=== PATIENT | male | born 1960 | race Caucasian/White ===

== ENCOUNTER 2016-09-27 10:56 | Emergency (ER) | payer MEDICAID ==
[~2016-09-27] VITALS: Ht 167.6 cm; Wt 78.0 kg
[2016-09-27 11:03] VITALS: BP 132/59
== END 2016-09-27 11:21 | disposition home or self-care (01) ==
LOC: ER 10:58
DX: R21 Rash and other nonspecific skin eruption (principal)
CPT/HCPCS: 99281; A4606; Z7610; Z7502

== ENCOUNTER 2016-12-14 20:48 | Emergency (ER) | payer MEDICAID ==
[~2016-12-14] VITALS: Ht 172.7 cm; Wt 76.7 kg
--- NOTE | 2016-12-14 21:00 | NUR ---
URINE SAMPLE COLLECTED AND SENT TO LAB.
--- NOTE | 2016-12-14 21:20 | NUR ---
TO BED 2 AMBULATORY SENT BY PMD FOR ABNORMAL LABS. ELEVATED LYMPHOCYTES 580 PER PT REPORT. PT ALSO REPORTS DIARRHEA X1 MONTH AND NIGHT SWEATS. PT AAOX4 NO ACUTE DISTRESS NOTED, RESP EVEN AND UNLABORED. PLACE PT ON CARDIAC MONITORING, CONTINUOUS POX. PENDING ER MD CARREON.
--- NOTE | 2016-12-14 21:30 | NUR ---
STARTED SL 18G TO R FOREARM, BLOOD DRAWN AND SENT TO LAB.
[2016-12-14 21:45] LABS: BASOPHILS # (AUTO) 0.1 /CMM (0.0-0.2); BASOPHILS % (AUTO) 1.2 % (0.0-2.0); EOSINOPHILS # (AUTO) 0.3 /CMM (0.0-0.7); EOSINOPHILS % (AUTO) 4.6 % (0.0-6.0); HEMATOCRIT 49 % (39-51); HEMOGLOBIN 16.5 g/dL (13.5-17.5); LYMPHOCYTES # (AUTO) 1.3 /CMM (0.8-4.8); LYMPHOCYTES % (AUTO) 19.4 % (20.0-44.0); MEAN CORPUSCULAR HEMOGLOBIN 30 PG (26.0-33.0); MEAN CORPUSCULAR HGB CONC 34 g/dl (31.0-36.0); MEAN CORPUSCULAR VOLUME 90 fL (80-96); MONOCYTES # (AUTO) 0.7 /CMM (0.1-1.30); MONOCYTES % (AUTO) 10.5 % (2.0-12.0); NEUTROPHILS # (AUTO) 4.3 /CMM (1.8-8.9); NEUTROPHILS % (AUTO) 64.3 % (43.0-81.0); PLATELET COUNT (AUTO) 221 /CMM (150-450); RDW COEFFICIENT OF VARIATION 12.1 (11.5-15.0); RED BLOOD CELL COUNT(AUTO) 5.44 MIL/uL (4.5-6.0); WHITE BLOOD COUNT (AUTO) 6.7 K/uL (4.3-11.0)
[2016-12-14 22:00] LABS: INR 1.02 (0.87-1.13); PROTHROMBIN TIME 10.6 SECS (9.5-12.7)
[2016-12-14 22:05] LABS: ALANINE AMINOTRANSFERASE 23 U/L (12-78); ALBUMIN 4.6 g/dL (3.4-5.0); ASPARTATE AMINOTRANSFERASE 21 U/L (15-37); BILIRUBIN,DIRECT 0.1 mg/dL (0.0-0.2); BILIRUBIN,TOTAL 0.4 mg/dL (0.2-1.0); CALCIUM, SERUM 10.6 mg/dL (8.5-10.1); CARBON DIOXIDE 25 mmol/L (21-32); CHLORIDE 104 mmol/L (98-107); CREATININE 0.9 mg/dL (0.6-1.3); GFR 87 mL/min (>60); GLUCOSE 96 mg/dL (74-106); POTASSIUM 4.1 mmol/L (3.5-5.1); SODIUM SERUM 137 mmol/L (136-145); TOTAL PROTEIN, SERUM 7.6 g/dL (6.4-8.2); UREA NITROGEN, BLOOD 14 mg/dL (7-18)
[2016-12-14 22:07] LABS: TROPONIN I < 0.017 ng/mL (0.00-0.056)
[2016-12-14 22:14] LABS: LACTIC ACID 0.8 mmol/L (0.4-2.0)
[2016-12-14 22:29] LABS: ALKALINE PHOSPHATASE 107 U/L (46-116)
--- NOTE | 2016-12-14 22:53 | NUR ---
IV removed. Catheter intact and site benign. Pressure and 4x4 applied to site. No bleeding noted. Patient discharged to home in stable condition. Written and verbal after care instructions given. Patient verbalizes understanding of instruction. ambulatory with a steady gait noted. pt aaox4 no acute distress noted, resp even and unlabored. pt remains pain free at this time.
[2016-12-14 22:55] VITALS: BP 127/63
== END 2016-12-14 22:55 | disposition home or self-care (01) ==
LOC: ER 20:57
DX: Z00.8 Encounter for other general examination (principal); R79.1 Abnormal coagulation profile; I10 Essential (primary) hypertension
CPT/HCPCS: 36415; 71010; 80048; 80076; 83605; 84484; 85025; 85730; 87040 ×2; 93005; 99285; A4606; Z7610

== ENCOUNTER 2016-12-17 04:45 | Emergency (ER) | payer MEDICAID ==
[~2016-12-17] VITALS: Ht 172.7 cm; Wt 77.1 kg
[2016-12-17 04:51] VITALS: BP 136/93
== END 2016-12-17 05:21 | disposition home or self-care (01) ==
LOC: ER 04:45
DX: R19.7 Diarrhea, unspecified (principal); I10 Essential (primary) hypertension; E78.00 Pure hypercholesterolemia, unspecified
CPT/HCPCS: 99281; A4606; Z7610; Z7502

== ENCOUNTER 2019-01-18 17:08 | Emergency (ER) | payer MEDICAID ==
[~2019-01-18] VITALS: Ht 172.7 cm; Wt 76.7 kg
[2019-01-18 17:10] VITALS: BP 144/80
--- NOTE | 2019-01-18 19:08 | NUR ---
Patient discharged to home in stable condition. Written and verbal after care instructions given. Patient verbalizes understanding of instruction.
== END 2019-01-18 19:08 | disposition home or self-care (01) ==
LOC: ER 17:13
DX: H61.23 Impacted cerumen, bilateral (principal); I10 Essential (primary) hypertension; E78.00 Pure hypercholesterolemia, unspecified

== ENCOUNTER 2020-08-08 03:23 | Emergency (ER) | payer MEDICAID ==
[~2020-08-08] VITALS: Ht 172.7 cm; Wt 72.6 kg
--- NOTE | 2020-08-08 03:25 | NUR ---
PT CAME TO THE ER C/O L TESTICULAR SWELLING AND PAIN S/P INGUINAL HERNIA REPAIR LAST 07/25/20. PT AAOX4,VSS, RESPIRATIONS EVEN AND UNLABORED ON RA W/ NAD NOTED. PT CONNECTED TO THE MONITOR AND POX
--- NOTE | 2020-08-08 03:45 | NUR ---
BLOOD COLLECTED AND SENT TO LAB
[2020-08-08 03:52] LABS: EOSINOPHILS % (AUTO) 4.1 % (0.0-6.0); HEMATOCRIT 43 % (39-51); HEMOGLOBIN 14.6 g/dL (13.5-17.5); LYMPHOCYTES # (AUTO) 0.5 /CMM (0.8-4.8); LYMPHOCYTES % (AUTO) 9.7 % (20.0-44.0); MEAN CORPUSCULAR HGB CONC 34 g/dl (31.0-36.0); MEAN CORPUSCULAR VOLUME 90 fL (80-96); MONOCYTES # (AUTO) 0.5 /CMM (0.1-1.30); MONOCYTES % (AUTO) 9.7 % (2.0-12.0); NEUTROPHILS # (AUTO) 4.2 /CMM (1.8-8.9); NEUTROPHILS % (AUTO) 76.5 % (43.0-81.0); PLATELET COUNT (AUTO) 192 /CMM (150-450); RED BLOOD CELL COUNT(AUTO) 4.77 MIL/uL (4.5-6.0); WHITE BLOOD COUNT (AUTO) 5.4 K/uL (4.3-11.0)
[2020-08-08 03:55] LABS: BILIRUBIN,URINE NEGATIVE (NEGATIVE); BLOOD, URINE NEGATIVE Ery/uL (NEGATIVE); COLOR,URINE YELLOW (YELLOW); LEUKOCYTE ESTERASE ,URINE NEGATIVE (NEGATIVE); NITRITE, URINE NEGATIVE (NEGATIVE); PROTEIN,URINE NEGATIVE (NEGATIVE); UGLUCOSE NEGATIVE (NEGATIVE); UROBILINOGEN,URINE 0.2 EU/dL (0.2)
[2020-08-08] MEDS ORDERED: IOHEXOL-300 100 ML VIAL IV ONE (03:57)
[2020-08-08] MEDS ORDERED: IV NS 0.9% 250 ML IV ONE (03:57)
[2020-08-08 03:58] LABS: CREATININE 0.9 mg/dL (0.6-1.3); POTASSIUM 4.2 mmol/L (3.5-5.1)
--- NOTE | 2020-08-08 04:25 | NUR ---
PT TAKEN TO CT
--- NOTE | 2020-08-08 04:35 | NUR ---
PT BACK FROM CT
--- NOTE | 2020-08-08 06:36 | NUR ---
Patient discharged to home in stable condition. Written and verbal after care instructions given. Patient verbalizes understanding of instruction.IV removed. Catheter intact and site benign. Pressure and 4x4 applied to site. No bleeding noted.
[2020-08-08 06:37] VITALS: BP 143/76
== END 2020-08-08 06:37 | disposition home or self-care (01) ==
LOC: ER 03:25
DX: K91.89 Other postprocedural complications and disorders of digestive system (principal); R50.9 Fever, unspecified; N50.89 Other specified disorders of the male genital organs; Z71.1 Person with feared health complaint in whom no diagnosis is made; I10 Essential (primary) hypertension; E78.00 Pure hypercholesterolemia, unspecified; Z98.890 Other specified postprocedural states
CPT/HCPCS: 36415; 71045; 74177; 80048; 81001; 85025; 99285; J7050; Q9967

== ENCOUNTER 2021-04-03 12:07 | Emergency (ER) | payer MEDICAID ==
[~2021-04-03] VITALS: Ht 172.7 cm; Wt 73.5 kg
[2021-04-03 12:17] VITALS: BP 104/57
[2021-04-03] MEDS ORDERED: GELATIN SPONGE,ABSORBABLE 1 SPONGE SPONGE TP ONE (12:33)
[2021-04-03] MEDS ORDERED: TDAP [DIPH/PERTUSSIS/TET] 0.5 ML VIAL IM ONE (13:11)
[2021-04-03] MEDS: TDAP [DIPH/PERTUSSIS/TET] 0.5 ML VIAL IM ONE (13:18)
--- NOTE | 2021-04-03 13:19 | NUR ---
WOUND CARE PROVIDED. WAS GIVEN TDAP. PT DISCHARGE IN STABLE CONDITION.
== END 2021-04-03 13:22 | disposition home or self-care (01) ==
LOC: ER 12:07
DX: S61.002A Unspecified open wound of left thumb without damage to nail, initial encounter (principal); I10 Essential (primary) hypertension; E78.5 Hyperlipidemia, unspecified; Z98.890 Other specified postprocedural states; W26.0XXA Contact with knife, initial encounter; Y93.89 Activity, other specified; Y92.89 Other specified places as the place of occurrence of the external cause; Y99.8 Other external cause status
CPT/HCPCS: 90471; 90715; 99283; A6403

== ENCOUNTER 2021-07-03 07:45 | Emergency (ER) | payer MEDICAID ==
[~2021-07-03] VITALS: Ht 264.2 cm; Wt 76.3 kg
[2021-07-03 08:07] VITALS: BP 110/68
--- NOTE | 2021-07-03 08:09 | NUR ---
BIBS FOR C/O LEFT HIP PAIN WALKING BACKWARD ON THE STAIR. RATES PAIN 2/10. NO APPARENT DEFORMITY NOTED. WILL CONTINUE TO MONITOR THE PATIENT.
--- NOTE | 2021-07-03 08:10 | NUR ---
DR JENNINGS AT THE BEDSIDE
== END 2021-07-03 09:05 | disposition home or self-care (01) ==
LOC: ER 07:49
DX: M25.552 Pain in left hip (principal); I10 Essential (primary) hypertension; E78.5 Hyperlipidemia, unspecified; Z98.890 Other specified postprocedural states
CPT/HCPCS: 73502

== ENCOUNTER 2021-12-27 05:16 | Emergency (ER) | payer MEDICAID ==
[~2021-12-27] VITALS: Ht 175.3 cm; Wt 74.8 kg
[2021-12-27 05:55] VITALS: BP 124/66
--- NOTE | 2021-12-27 07:52 | NUR ---
Patient discharged to home in stable condition. Written and verbal after care instructions given. Patient verbalizes understanding of instruction.
== END 2021-12-27 07:53 | disposition home or self-care (01) ==
LOC: ER 05:19
DX: M67.431 Ganglion, right wrist (principal); I10 Essential (primary) hypertension; E78.00 Pure hypercholesterolemia, unspecified; Z87.310 Personal history of (healed) osteoporosis fracture; Z87.710 Personal history of (corrected) hypospadias; Z60.2 Problems related to living alone
CPT/HCPCS: 73110

== ENCOUNTER 2022-11-06 02:45 | Emergency (ER) | payer MEDICAID ==
[~2022-11-06] VITALS: Ht 175.3 cm; Wt 72.6 kg
[2022-11-06 03:02] VITALS: BP 133/75
== END 2022-11-06 03:20 | disposition home or self-care (01) ==
LOC: ER 02:46
DX: S60.00XA Contusion of unspecified finger without damage to nail, initial encounter (principal); W45.8XXA Other foreign body or object entering through skin, initial encounter; Y93.89 Activity, other specified; Y92.89 Other specified places as the place of occurrence of the external cause; Y99.8 Other external cause status